=== PATIENT | male | born 1965 | race Caucasian/White ===

== ENCOUNTER → 2024-04-17 16:26 | Outpatient (CLI) | payer OTHER, SELFPAY ==
--- NOTE | 2024-04-17 16:31 | EKG_ITS ---
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
[2024-04-17 16:48] LABS: Add Manual Diff / Slide Review NO; Basophils Absolute Auto 100 /uL (0-100); Basophils Percent Auto 1.2 % (0-2); Eosinophils Absolute Auto 100 /uL (0-450); Eosinophils Percent Auto 0.8 % (2-4); Hematocrit 46.3 % (41-53); Hemoglobin 15.3 g/dL (13.5-17.5); Lymphocytes Absolute Auto 2100 /uL (1100-4500); Lymphocytes Percent Auto 24.5 % (25-40); Mean Corpuscular HGB Conc 33.1 % (30-36); Mean Corpuscular Hemoglobin 27.9 PG (26-34); Mean Corpuscular Volume 84.2 fL (80-100); Monocytes Absolute Auto 800 /uL (0-900); Monocytes Percent Auto 9.5 % (3-14); Neutrophils Absolute Auto 5400 /uL (1500-7000); Platelet Count 357 X10^3/uL (150-400); Red Cell Distribution Width 14.3 % (11.6-14.8); White Blood Cell Count 8.5 X10^3/uL (4.5-11.0)
[2024-04-17 17:04] LABS: Albumin 4.7 g/dL (3.5-5.0); BUN Creatinine Ratio 21.3 (6-22); Blood Urea Nitrogen 20 mg/dL (9-20); Calcium 9.7 mg/dL (8.4-10.2); Carbon Dioxide 26 mmol/L (22-32); Chloride 106 mmol/L (98-107); Estimated Glomerular Filt Rate > 60 mL/min (>60); Glucose 117 mg/dL (70-100); HEMOLYSIS 17 (0-50); Potassium 3.6 mmol/L (3.4-5.1); Sodium 141 mmol/L (137-145)
[2024-04-17 17:11] LABS: Prealbumin 27.3 mg/dL (17.6-36.0)
[2024-04-17 17:23] LABS: Vitamin D 25 Hydroxy (D3) 35.9 ng/mL (30.0-100.0)
[2024-04-17 23:31] LABS: Hemoglobin A1C% w Est Avg Glu 5.4 % (4.0-6.0)
== END ==
LOC: RESP 16:29
PROVIDERS: PCP Physician Assistant Medical; Referring Provider Orthopaedic Surgery Adult Reconstructive Orthopaedic Surgery; Visit Provider Orthopaedic Surgery Adult Reconstructive Orthopaedic Surgery
DX: Z01.818 Encounter for other preprocedural examination (principal); R77.0 Abnormality of albumin; E55.9 Vitamin D deficiency, unspecified; R73.9 Hyperglycemia, unspecified; Z01.812 Encounter for preprocedural laboratory examination
CPT/HCPCS: 36415; 80048; 82040; 82306; 83036; 84134; 85025; 93005

== ENCOUNTER 2025-01-17 10:35 | Day surgery (SDC) | payer OTHER, SELFPAY ==
[2025-01-04 12:21] VITALS: BMI 36.5
--- NOTE | 2025-01-17 | PATH_ITS ---
[facility] Accession Number: [id number] No. of containers..01 Tissue . 01 Material submitted: . back - BACK MASS . 01 Diagnosis: SOFT TISSUE, BACK MASS, EXCISION: Mature adipose tissue, consistent with lipoma. MRV 01/23/2025 1858 Local . 01 Electronically signed: . Jayde Brooks MD, Pathologist NPI- [id number] . 01 Gross description: . Received in formalin with two identifiers and back mass is a yellow to summers, ragged, irregular soft tissue fragment, 9.9 x 5.1 x 2.3 cm, inked blue. The specimen is serially sectioned into 17 slices to reveal a well-circumscribed, pink-summers to hemorrhagic lesion measuring 1.9 x 1.5 x 1.5 cm within slices 6-9 and 0.1 cm from the nearest blue-inked margin. The remaining cut surface is yellow to summers fibroadipose tissue with no additional lesions identified. [employer] sections are submitted as follows: . A1: Rep slice 2. A2: Rep slice 5. A3: Rep slice 6 with lesion. A4: Rep slice 7 with lesion. A5: Rep slice 8 with lesion. A6: Rep slice 9 with lesion. A7: Entire slices 14 and 15, no lesion. ([id number]) /MRV 01/18/2025 1615 Local . 01 Pathologist provided ICD-10: D17.9 . 01 CPT . 078463 Specimen Comment: A courtesy copy of this report has been sent to [phone] Performed at: [address] [address], [place], [place] [id number] MD Brandon Galicia MD Phone: [phone]
[2025-01-17] MEDS: LACTATED RINGERS 1,000 ML 42 ML IV (11:20)
[2025-01-17] MEDS: ACETAMINOPHEN 325 MG TABLET 975 MG PO (11:20)
[2025-01-17 11:22] VITALS: BP 157/98; PULSE 87; RESP 16; TEMP 36.8; O2SAT 96; BMI 36.5
--- NOTE | 2025-01-17 11:31 | P.HP_ITS ---
History of Present Illness History of Present Illness Date Patient Seen: 01/17/25 Time Patient Seen: 11:32 Chief complaint: SDC Narrative: Eusebio is a 59-year-old man with a left upper back lipoma. See the office note from November for details. [facility] Medical History (Updated 01/04/25 @ 12:19 by Candelaria Delgadillo RN) HLD (hyperlipidemia) HTN (hypertension) Social History household members: spouse Smoking Status: Former smoker Meds Home Medications and Allergies Home Medications ?Medication ?Instructions ?Recorded ?Confirmed ?Type amlodipine 10 mg tablet 10 mg PO DAILY blood pressur e 12/15/24 01/17/25 History dextroamphetamine-amphetamine ER 1 cap PO QAM 12/15/24 01/17/25 History 10 mg 24hr capsule,extend release Allergies Allergy/AdvReac Type Severity Reaction Status Date / Time Deweseb-QKE-AfK Reductase AdvReac Severe Muscle Pain Verified 01/17/25 11:04 Inhibitor Exam Narrative Exam Narrative: Left upper back lipoma Assessment & Plan Assessment and plan (1) Lipoma of back: Status: Acute Plan Excisional biopsy of left upper back lipoma. He can be positioned in the right lateral decubitus position. Time-Based Coding :: [TOTAL MINUTES] spent with patient and on the chart (including review of chart, obtaining history, exam, reviewing outside data, placing orders, documenting exam and treatment plan, and counseling patient) on [DATE]. 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
--- NOTE | 2025-01-17 12:26 | SUR.OPER ---
Lateral right side down on a alicia bag, head on pillow, gel axillary roll in place, bottom leg bent with gel pad under knee to foot, upper leg straight and supported with pillows. Upper arm supported by pillows and secured over bottom arm to padded arm board. Safety belt at hip, tape over blanket lower legs and across torso
[2025-01-17 13:22] VITALS: BP 99/55; PULSE 65; RESP 14; TEMP 36.3; O2SAT 95
--- NOTE | 2025-01-17 13:22 | PM.OP.1 ---
Operative Date/Time/Diagnoses Date of procedure: 01/17/25 Time of procedure: 13:24 Pre-op diagnosis: Left upper back lipoma Post-op diagnosis: same Procedure & Clinicians Procedure: Excisional biopsy of left upper back lipoma Same procedure(s) as scheduled: Yes Surgeon: Ralph Baugh Assisted?: No Anesthesia Type: General Operative Notes Findings: Amorphous, ill-defined left upper back lipoma Applied: none Estimated Blood Loss (mL): 10 Procedure in detail: The patient was brought to the operating room and general anesthesia was induced with LMA. He was then positioned in the right lateral decubitus position with the left side up. The left upper back was prepped and draped in the usual fashion and a time-out was performed. A 12 cm incision was created over the mass. The mass appeared to be an amorphous, ill-defined lipoma that extended down to the trapezius fascia. The mass was roughly 12 cm x 10 cm x 4 cm. The mass was resected with a combination of blunt finger fracture dissection, Bovie dissection and sharp dissection with Tai scissors. A few bleeders were cauterized. Local was injected into the muscle fascia. The wound was then closed in layers using multiple interrupted 2-0 Vicryl dermal sutures followed by a running 4-0 Monocryl subcuticular closure. Steri-Strips and a sterile dressing were applied. The patient was awakened and brought to recovery room. Specimen: Left upper back Complications: none Post-operative Condition: stable Disposition: PACU
[2025-01-17 13:36] VITALS: BP 101/60; PULSE 64; RESP 12; TEMP 36.3; O2SAT 95
[2025-01-17 13:42] VITALS: BP 111/66; PULSE 66; RESP 13; TEMP 36.3; O2SAT 95
[2025-01-17 13:49] VITALS: BP 112/66; PULSE 70; RESP 15; TEMP 36.2; O2SAT 97
[2025-01-17 15:05] VITALS: BP 125/69; PULSE 78; RESP 18
== END 2025-01-17 15:06 | disposition home or self-care (01) ==
PROVIDERS: PCP Physician Assistant Medical; Referring Provider Physician Assistant Medical; Visit Provider Surgery
PROC: (CPT 21931; principal; 2025-01-17 12:30)
DX: D17.1 Benign lipomatous neoplasm of skin and subcutaneous tissue of trunk (principal); Z87.891 Personal history of nicotine dependence
CPT/HCPCS: 21931; J1100; J1885; J2250; J2405; J2704; J3010; J7120